=== PATIENT | male | born 1950 | race African-American/Black ===

== ENCOUNTER 2022-12-14 18:41 | Emergency (ER) | payer OTHER, BC ==
[2022-12-14 18:48] VITALS: RESP 18; BMI 19.2
[2022-12-14] MEDS ORDERED: SODIUM CHLORIDE 0.9% 500 ML INFUS.BAG IV ONE (19:26)
[2022-12-14 19:57] VITALS: PULSE 75
[2022-12-14 21:15] LABS: BASO % 0.9 % (0-2.0); HEMATOCRIT 34.4 % (35.4-49); HEMOGLOBIN 10.7 GM/dL (11.7-16.9); LYMPH % 34.5 % (8-40); MCHC 31.1 g/dl (32.0-35.9); MEAN CELL VOLUME 74.1 fl (80-96); MEAN PLT VOLUME 8.5 fl (7.5-11.1); MONO % 7.2 % (3.8-10.2); NEUT % 51.4 % (42.8-82.8); PLATELET COUNT 261 10^3/uL (134-434); RBC 4.64 M/mm3 (4.00-5.60); RDW 13.6 % (11.9-15.9); WHITE BLOOD COUNT 5.3 K/mm3 (4.0-10.0)
[2022-12-14 21:29] LABS: POTASSIUM 4.9 mmol/L (3.5-5.1)
[2022-12-14 21:30] LABS: BLOOD UREA NITROGEN 24.6 mg/dL (7-18); CALCIUM 9.3 mg/dL (8.5-10.1); MAGNESIUM 2.7 mg/dL (1.8-2.4)
[2022-12-14 21:33] LABS: CREATININE 1.1 mg/dL (0.55-1.3)
[2022-12-14 21:35] LABS: BILIRUBIN,TOTAL 0.5 mg/dL (0.2-1); TOT PROT 7.3 g/dl (6.4-8.2)
[2022-12-14 21:52] LABS: URINE APPEARANCE CLEAR; URINE BILIRUBIN NEGATIVE (NEGATIVE); URINE COLOR YELLOW; URINE GLUCOSE (UA) 3+ (NEGATIVE); URINE KETONE NEGATIVE (NEGATIVE); URINE LEUK ESTERASE NEGATIVE (NEGATIVE); URINE NITRITE NEGATIVE (NEGATIVE); URINE PROTEIN NEGATIVE (NEGATIVE)
[2022-12-14 23:14] VITALS: BP 144/76; TEMP 97.7
== END 2022-12-14 23:18 | disposition home or self-care (01) ==
LOC: JER 18:41
DX: R42 Dizziness and giddiness (principal); Z20.822 Contact with and (suspected) exposure to COVID-19
CPT/HCPCS: 0241U-QW; 36415; 70450-TC; 71045-TC-FY; 72125-TC; 80053; 81003; 82272; 83735; 84443; 84484; 85025; 87086; 93005; 93010; 99285-25